=== PATIENT | female | born 1960 | race Caucasian/White ===

== ENCOUNTER 2020-05-04 06:59 | Day surgery (SDC) | payer OTHER ==
[~2020-05-04] VITALS: Ht 165.1 cm; Wt 63.5 kg
[2020-05-04 07:02] VITALS: BP 104/70
[2020-05-04 15:16] VITALS: BP 127/76
== END 2020-05-04 14:50 ==
LOC: DS 06:59 → OR 11:00 → DS 11:00
PROVIDERS: ATTEND Internal Medicine Gastroenterology
DX: K21.00 Gastro-esophageal reflux disease with esophagitis, without bleeding (principal); K22.2 Esophageal obstruction; K44.9 Diaphragmatic hernia without obstruction or gangrene
CPT/HCPCS: 43235; J1200; J1610; J2250; J2310; J2405; J3010; J3490